=== PATIENT | female | born 1970 | race Two or more races ===

== ENCOUNTER 2021-10-25 11:07 | Emergency (ER) | payer MEDICAID, OTHER ==
[~2021-10-25] VITALS: Ht 162.6 cm; Wt 90.7 kg
[2021-10-25 11:29] VITALS: BP 136/87
--- NOTE | 2021-10-25 11:56 | NUR ---
Patient discharged to home in stable condition. Written and verbal after care instructions given. Patient verbalizes understanding of instruction.
== END 2021-10-25 11:57 | disposition home or self-care (01) ==
LOC: ER 11:56
DX: H91.91 Unspecified hearing loss, right ear (principal)